=== PATIENT | female | born 1985 ===

== ENCOUNTER → 2020-07-26 14:24 | Outpatient (BNVA) | payer OTHER, SELFPAY | PROVIDERS: PCP Hospitalist; Visit Provider Surgery | DX: L29.0 Pruritus ani (principal) | CPT/HCPCS: 99202 ==

== ENCOUNTER 2024-12-22 09:52 | Outpatient (AMB) | payer MEDICARE, MEDICAID, SELFPAY ==
--- OUTSIDE RECORDS SUMMARY | 2024-12-17 14:00 | XMS_ITS | Encounter Summary ---
Author Organization [facility] Address [address] [place] [id number] Care Team Providers Care Field Training Agent Name Role Phone Onelia Daigle Primary Care Provider [phone] Reason for Visit * Consultation (Routine) - Authorized Specialty Diagnoses / Procedures Referred By Nestor garcía Referred To Contact Physical Therapy Diagnoses Right shoulder pain Monica Dillon, DO [address] [place] [address] Phone: tel: fax: Referral ID Status Reason Start Date Expiration Date Visits Requested Visits Authorized [id number] Authorized Specialty Services Required 10/28/2024 10/28/2025 20 20 Encounter Details Date Type Department Care Team (Late st Contact Info) Description 12/17/2024 2:00 PM EDT Treatment [address] [phone] Mallorie Cruz PT Chronic right shoulder pain (Primary Dx) Social History Tobacco Use Types Packs/Day Years Used Date Smoking Tobacco: Never Smokeless Tobacco: Never Alcohol Use Standard Drinks/Week Comments No 0 (1 standard drink = 0.6 oz pur e alcohol) Comments Unknown Sex and Gender Information Value Date Recorded Sex Assigned at Not on file Legal Sex Female 9:35 AM EST Gender Identity Not on file Sexual Orientation Not on file documented as of this encounter Progress Notes * Mallorie Cruz PT - 12/17/2024 2:00 PM EDT [facility] - Outpatient PHYSICAL THERAPY DAILY TREATMENT NOTE - OP Date: 12/17/2024 Visit Number: 3 Patient Name: Jennifer Caldwell : 1985 Age: 39 y.o. Gender: female Diagnosis: ICD-10-CM ICD-9-CM 1. Chronic right shoulder pain M25.511 719.41 G89.29 338.29 Date of Onset/Surgery: 11/30/2021 Referring Provider: Monica Dlilon DO Insurance: Payor: MEDICARE / Plan: MEDICARE PART A & B / Product Type: Medicare / Patient Identified by: Mallorie Cruz PT Language: Speaks and understands Swiss as preferred language with no senior solutions engineer required Medications: No current outpatient medications on file prior to visit. No current facility-administered medications on file prior to visit. Allergies: has no allergies on file. Precautions: none Fall risk: No SUBJECTIVE Subjective Report: pt reports R shoulder feeling better since last session. The massage hurt but then later it felt better. Chart Reviewed: Yes Pain: 4-09/18 R shoulder TREATMENT INTERVENTION: Shoulder pulleys into flexion x2 min Shoulder ER yellow theraband x 10 Shoulder extension single yellow theraband x 10 Supine elbow flexion with 1lb weight and towel roll under elbow, 2x10 reps Band pull aparts in hookyling with green band, 1x10 reps- HELD Manual Cross friction massage to biceps and biceps tendon, STM to bicep; in sitting STM and TP release to UT/LS/rhomboids on R ASSESSMENT/Response to Treatment Good Tolerated session well. Made some improvements after last session, so continued similar treatment. Patient Education: Education provided: POC Education Provided To: Patient utilizing Explanation mode(s) of education Response to Education: Verbal Understanding PLAN POC Development/Review: No Change in the Plan of Care; Participants: Patient Interventions Time Entry: Modalities: Therapeutic procedures: Manual Therapy Time Entry: 15 Therapeutic Exercise Time Entry: 15 Total Treatment Time: 30 Documentation completed by Mallorie Cruz PT documented in this encounter Plan of Treatment Upcoming Encounters Date Type Department Care Team (Late st Contact Info) Description 12/23/2024 11:30 AM EDT Treatment [address] [phone] Arya Florez PTA 12/27/2024 11:00 AM EDT Treatment [address] [place] [phone] Odalis Molina, PT 12/29/2024 11:30 AM EDT Treatment [facility] [address] [phone] Mallorie Cruz, PT 01/04/2025 11:00 AM EDT Treatment [facility] [address] [phone] Mallorie Cruz, PT 01/06/2025 11:00 AM EDT Treatment [address] [phone] Mallorie Cruz, PT 01/11/2025 11:00 AM EDT Treatment [address] [phone] Mallorie Cruz, PT 01/13/2025 10:45 AM EDT Consult Orthopedic [place] [address] [phone] Sean Serna, DPM [address] [phone] 01/13/2025 11:15 AM EDT Treatment [address] [phone] Mallorie Cruz, PT 01/17/2025 11:30 AM EDT Treatment [address] [phone] Mallorie Cruz, PT documented as of this encounter Goals Goal Patient Goal Type Associated Problems Recent Progress Patient-Stated? Author STGs (x4 visits) General Yes Tish Aiken PT Note: Patient will increase R knee flexion ROM to >/= 125 degrees for symmetry and ambulation Patient will increase knee flexion and extension strength to >/= 4/5 for functional mobility Patient will decrease time on 5xSTS to </= 25 seconds for improvement in functional strength Patient will be independent with HEP LTGs (x8 visits) General Yes Tish Aiken PT Note: Patient will improve R hip abduction and extension strength to >/= 4/5 for improvements in functional strength and stability Patient will improve time on 5xSTS to </= 18 seconds to show increase in functional strength Patient will improve distance on 6MWT to >/= 1500ft with </= 2 point increase in discomfort for improvements in household and community ambulation Patient will endorse being able to complete all ADLs with </= 2 point increase in discomfort Patient will be independent with HEP for maintenance and progression of gains made in skilled physical therapy. documented as of this encounter Visit Diagnoses Diagnosis Chronic right shoulder pain- Primary Pain in joint, shoulder region documented in this encounter Care Teams Field Training Agent Relationship Specialty Start Date End Date Onelia Daigle PA [address] [place] [address] PCP - General Physician Senior Solutions Engineer 10/05/24 documented as of this encounter
--- NOTE | 2024-12-22 09:58 | MHC.OFFVIS ---
Intake Visit Reasons: 3 month migraine Allergies No Known Allergies Allergy (Verified 12/22/24 09:59) Medication List - Last Reconciled 12/22/24 by Onelia Quiroz CNP baclofen 10 mg PO BID PRN betamethasone dipropionate 0.05% topical BID diclofenac sodium 75 mg PO BID diclofenac sodium 1% grams topical DAILY PRN dicyclomine 20 mg PO TID docusate sodium 100 mg PO DAILY gabapentin 300 mg PO BID PRN hydrocortisone 2.5% 1 appl [place] BID ibuprofen 800 mg PO TID PRN linaclotide 72 mcg PO QAM meclizine 12.5 mg orally 1 tab at bedtime and 1 tab as needed; 30 days melatonin 3 mg PO BEDTIME PRN menthol-zinc oxide 0.44-20.6 % (Calmoseptine) 1 appl topical QID PRN omeprazole 20 mg PO DAILY ondansetron HCl 4 mg PO DAILY sumatriptan succinate 0 mg PO DIRECTED verapamil 40 mg PO DAILY HPI Comments Details: 39-yo RH woman with migraines without aura. She was doing okay up until a few days ago. She started with bad migraine about 4 days ago that has continued with moderate to severe pressure-type pain to right side of head and behind eye with photophobia and sonophobia. Sumatriptan as needed has not helped. It was likely triggered by smell of paint as a room in her house was painted and the odor was still lingering. She got migraine last year after painting house and had to go to ER. Prior to this, headaches were okay, happening on average 1x/week lasting up to few hours and relieved with sumatriptan. Dizziness was also less. [facility] Medical History (Updated 12/22/24 @ 10:02 by Onelia Quiroz CNP) Pruritus ani GERD (gastroesophageal reflux disease) Migraine Surgical History H/O: hemorrhoidectomy (~2018) History of cholecystectomy (~2009) History of tonsillectomy (~2008) History of (~2009) Review of Systems Const Denies chills, Denies daytime sleepiness, Denies difficulty sleeping, Denies fatigue, Denies fever(s), Denies frequent falls, Reports headache(s), Denies increased appetite, Denies poor appetite, Denies snoring, Denies weakness, Denies weight gain and Denies weight loss Eyes Denies loss of vision ENT Denies vertigo, Reports dizziness and Reports headache(s) Card Denies chest pain at rest, Denies chest pain with activity, Denies syncope, Denies leg edema and Denies palpitations Resp Denies snoring GI Denies constipation, Denies heartburn, Denies diarrhea and Denies nausea Denies urinary frequency, Denies urinary incontinence and Denies urinary urgency Musc Denies abnormal gait, Denies numbness and Denies tingling Skin/Breast Denies dry skin and Denies rash Neuro Denies abnormal gait, Denies vertigo, Reports dizziness, Denies syncope, Denies frequent falls, Reports headache(s), Denies lack of coordination, Denies loss of vision, Denies memory loss, Denies numbness, Denies restless legs, Denies seizure-like activity, Denies tingling, Denies paresthesias, Denies tremor(s) and Denies weakness Psych Denies anxiety, Denies depression, Denies auditory hallucinations, Denies memory loss, Denies visual hallucinations and Denies suicidal ideation Endo Denies fatigue and Denies palpitations Physical Exam Const Other: General Appearance:? normal, in no acute distress. Skin:? no rashes, no significant birthmarks. Heart:? S1, S2 normal, no murmurs. Lungs:? clear anteriorly and posteriorly. Extremities:? no edema. Psych:? alert, oriented, cognitive function intact, cooperative with exam. Neuro Other: Mental Status:?Normal attention, orientation, memory and affect.? Cranial Nerves:?Pupils are equal, round and reactive to light. External occular muscles are intact. Visual roman are full. Face is symmetrical. Facial sensations are normal. Tongue is midline. Palate elevates symmetrically. Shoulder shrugging is normal. Hearing to bedside conversation is normal. Motor Examination:?Normal muscle tone, bulk and strength,?Deep tendon reflexes are 2+,?Plantars are flexor.? Sensory Exam:?....? Coordination:?No ataxia,?no titubation.? Gait Exam: Within normal limits. Cerebellar Signs:?Momdcm-jp-bxmo is okay. Extrapyramidal System:?No tremor, rigidity with normal facial expressions.? Pronator Drift:?Not present.? Involuntary Movements:?No tremors seen.? Speech:?Normal.? Assessment & Plan Assessment & Plan (1) Migraine without aura: Code(s): G43.009 - Migraine without aura, not intractable, without status migrainosus Category: Medical Qualifiers: Status migrainosus presence: without status migrainosus Intractability: not intractable Qualified Code(s): G43.009 - Migraine without aura, not intractable, without status migrainosus Plan: Continue verapamil 40mg 1 tablet daily. Continue sumatriptan 50mg 1 tablet as needed for migraines. Start prednisone 20mg 3 tabs x3 days, 2 tabs x2 days, 1 tab x2 days, use/side effects reviewed. (2) Vertigo: Code(s): R42 - Dizziness and giddiness Category: Medical Plan: Continue meclizine 12.5mg 1 tablet twice a day as needed. Plan Meds tried: Amitriptyline, topiramate, propranolol, depakote, Tylenol ES, Sumatriptan Medications: New prednisone 20 mg orally 3 tabs x3 days, 2 tabs x2 days, 1 tab x2 days; 15 tabs 0RF 7 days Coding Level of Care Code Est Pt Level 4 (44544) Diagnoses Migraine without aura and without status migrainosus, not intractable G43.009 Status migrainosus presence: without status migrainosus Intractability: not intractable Vertigo R42
--- OUTSIDE RECORDS SUMMARY | 2024-12-22 10:29 | XMS_ITS | Patient Health Record ---
Author Organization [facility] Address [address] [place] [address] Care Team Providers Care Per Diem Interpreter Name Role Phone YASMEEN ORTIZ Primary Care Provider [phone] Allergies No Known Allergies Reason For Referral No Information Medications Medication SIG (Take, Route, Frequency, Duration) Notes Start Date End Date Status Lidocaine (Anorectal) 5 % APPLY NEEDE D EXTERNALLY FOUR TIMES A DAY; Duration: 15 Active Acetaminophen ER 650 MG 1 tablet as need ed Orally twice a day Active Diclofenac Sodium 75 MG 1 tablet with fo od or milk Orally Twice a day; Duration: 30 Active Ergocalciferol 1.25 MG (90475 UT) 1 capsule Orally weekly; Duration: 30 day(s) 01/24/2021 Active Omeprazole 20 MG TAKE ONE CAPSULE BY MOUTH EVERY DAY; Duration: 90 Active SUMAtriptan Succinate 50 MG 1 tablet at least 2 hours between doses as needed Orally Twice a day Active Colace 100 MG 1 capsule as needed Orally Once a day; Duration: 30 day(s) 07/23/2019 Active Gabapentin 300 MG 1 capsule Orally tid prn; Duration: 30 day(s) Active Anusol-HC 2.5 % 1 application Rectal Twice a day; Duration: 30 Not-Taking Zofran 4 MG 1 tablet Orally Once a day; Duration: 7 days 05/26/2020 Active Dicyclomine HCl 10 MG 2 capsules Orally Three times a day; Duration: 90 Active Baclofen 10 MG 1 tablet as needed Orally Twice a day Active Lidocaine 5 % 1 application as needed Externally Three times a day; Duration: 30 days 06/01/2021 Active Melatonin 3 MG 1 tablet at bedtime as needed Orally Once a day Active Lactulose 20 GM/30ML 15 ml Orally Once a day; Duration: 30 day(s) 03/27/2021 Active Cymbalta 20 MG 1 capsule Orally Twi ce a day; Duration: 30 day(s) 11/30/2018 Active Topiramate 25 MG 1 tablet Orally Once a day Not-Taking Voltaren 1 % as directed External ly apply to affected area once a day Active Linzess 145 MCG 1 capsule Orally Onc e a day; Duration: 30 Active Immunizations Vaccine Route Administration Date Status Comme nts COVID Unknown 11/08/2020 Administered Social History Tobacco Use: Social History Observation Description Date Details (start date - stop date) Never Smoker NA - NA Tobacco Use/Smoking Question Answer Notes Are you a nonsmoker Alcohol Screen (Audit-C) Question Answer Notes Did you have a drink containing alcohol in the p ast year? No Points 0 Interpretation Negative Problems Problem Type SNOMED Code ICD Code Onset Dates Problem Status W/U Status Risk Notes Problem Viral infection (04710060) Viral infection, unspecified (B34.9) Active confirmed Problem Pernicious anemia (93572703) Vitamin B12 deficiency anemia due to intrinsic factor deficiency (D51.0) Active confirmed Problem Vitamin D deficiency (49879860) Vitamin D deficiency, unspecified (E55.9) Active confirmed Problem Mild recurrent major depression (60231550) Major depressive disorder, recurrent, mild (F33.0) Active confirmed Problem Generalized anxiety disorder (57599451) Generalized anxiety disorder (F41.1) Active confirmed Problem Migraine with aura (8701861) Migraine with aura, not intractable, without status migrainosus (G43.109) Active confirmed Problem Insomnia (936749174) Insomnia, unspecified (G47.00) Active confirmed Problem Acute sinusitis (66583286) Acute sinusitis, unspecified (J01.90) Active confirmed Problem Constipation (98286197) Constipation, unspecified (K59.00) Active confirmed Problem Second degree hemorrhoids (021170170) Second degree hemorrhoids (K64.1) Active confirmed Problem Osteoarthritis of knee (335894653) Bilateral primary osteoarthritis of knee (M17.0) Active confirmed Problem Joint pain (31159457) Pain in unspecified joint (M25.50) Active confirmed Problem Low back pain (545991472) Low back pain (M54.5) Active confirmed Problem Epigastric pain (34070103) Epigastric pain (R10.13) Active confirmed Problem Headache (03747015) Headache (R51) Active confirmed Problem Fatigue (86733508) Other fatigue (R53.83) Active confirmed Problem Syncope and collapse (365526874) Syncope and collapse (R55) Active confirmed Problem Pre-procedure evaluation check (080947230) Encounter for other preprocedural examination (Z01.818) Active confirmed Problem Body mass index 30.00 to 34.99 (589319946518990) Body mass index (BMI) 31.0-31.9, adult (Z68.31) Active confirmed Problem Body mass index 30.00 to 34.99 (283976611540146) Body mass index (BMI) 32.0-32.9, adult (Z68.32) Active confirmed Problem Abdominal pain (48152715) Abdominal pain (R10.9) Active confirmed Problem Hemorrhoids without complication (77353434) Hemorrhoids, unspecified hemorrhoid type (K64.9) Active confirmed Plan Of Treatment Pending Test Test Name Order Date US ABDOMINAL 02/09/2019 C. DIFFICILE TOXIN PCR 12/01/2019 Insurance Providers Payer Name Payer Address Payer Phone Subscriber Number Group Number Insured Name Patient Relationship to Insured Coverage Start Date Coverage End Date Medicare [address] [place] [phone] [id number] Jennifer Ryan i Self - patient is the insured [place] [address] [place] [address] [id number] Jennifer Ryan i Self - patient is the insured Medications Administered Medication Instructions Date of Administration Dosage Notes Vitamin B-12 12/01/2018 Vitamin B-12 01/01/2019 Vitamin B-12 02/09/2019 Vitamin B-12 03/16/2019 Vitamin B-12 07/12/2019 Vitamin B-12 02/29/2020 b-12 shot gi asuncion in right deltoid muscle by EDUARDO Ryan. Vitamin B-12 06/05/2020 Vitamin B-12 07/07/2020 lot [id number] exp 07/31 Vitamin B-12 03/26/2021 lot: [id number] Ex p: 03/02 Vitamin B-12 05/28/2021 lot :[id number] exp :aug 01 right deltoid Vitamin B-12 06/25/2021 Medical (General) History Medical History History ICD Code constipation depression B12 deficiency Hemorrhoids Back pain Anxiety talks to Callie Surgical History Surgery Date(Month/Year) section cholecystectomy Hospitalization History Reason Date(Month/Year)
== END 2024-12-22 10:15 | disposition home or self-care (01) ==
LOC: HO.HSM 09:53
PROVIDERS: PCP Physician Assistant Medical; Visit Provider Registered Nurse
DX: G43.009 Migraine without aura, not intractable, without status migrainosus (principal); R42 Dizziness and giddiness
CPT/HCPCS: 99214

== ENCOUNTER → 2024-12-22 09:52 | Outpatient (BNVA) | payer MEDICARE, MEDICAID, SELFPAY | PROVIDERS: PCP Physician Assistant Medical; Visit Provider Registered Nurse | DX: G43.009 Migraine without aura, not intractable, without status migrainosus (principal); H53.141 Visual discomfort, right eye; R42 Dizziness and giddiness | CPT/HCPCS: 99212 ==

== ENCOUNTER 2025-01-24 13:16 | Outpatient (AMB) | payer MEDICARE, MEDICAID, SELFPAY ==
--- NOTE | 2025-01-24 13:40 | MHC.OFFVIS ---
Vital Signs 01/24/25 13:45 Height 5 ft 5 in Weight 200 lb BMI 33.3 BP 108/68 Blood Pressure Location Rt brachial Position Sitting Respiration 16 Pulse 68 Pulse Oximetry (%) 98 Intake Visit Reasons: 4 weeks GROSS Radiology Tech Required: No Allergies No Known Allergies Allergy (Verified 01/24/25 13:44) HPI Comments Details: Jennifer is a 39-year-old female patient following in the clinic for migraines with aura. She was last seen on 12/22/2024 at which time she reported pain for approximately 4 days with a pressure type pain to the right side of her head and behind the eye with photophobia and phonophobia. Her as-needed sumatriptan was not helpful and she was prescribed a course of prednisone for acute therapy. She has trialed numerous therapies in the past that have caused dizziness and somnolance. She remains on verapamil 40mg daily which she tolerates though she does not have significant migraine relief with this . She has been taking sumatriptan, ibuprofen, and tylenol for migraine. She is taking the sumatriptan or an OTC option once per week or less. She notes that in general headahces have been improving now occurring once weekly. They generally last 2-3 hours but can last longer such as 2-3 days. With her headaches she has light and sound sensitivity, nasuea, and dizziness. Sumatriptan if taken early can effectively abort her migraine within 1 hour. Unfortunately, more recently (starting in the beginning of December) her painted the floor which caused significant fumes. This caused a 10 day headache for which she went to urgent care and also was given a course of prednisone. She subsequently developed pain to her right eye as well as redness. She saw urgent care again she was given a topical cream. Since this time she has had intermittent right eye pain with redness to her sclera snd right retroorbital pain. Oral prednisone has helped her pain though after the course of prednisone her pain returned. Current pain is 4/10 and described as a pressure. She also notes some possible loss in her visual acuity to the right side only since this started. She has not seen her eye provider since June. She does not have any visual loss, floaters, or scotomas in her vision. She feels however that it is not as sharp as it had been in the past to the right side. Prior medication trials have included: Verapamil 40 mg once daily-currently taking Amitriptyline- Caused dizziness and somnolance Topiramate-Caused dizziness and somnolance Propranolol-Caused dizziness and somnolance Depakote-Caused dizziness and somnolance Sumatriptan 50 mg Prior workup: None available [facility] Medical History (Updated 01/24/25 @ 14:16 by Lyla Tse CNP) Pruritus ani GERD (gastroesophageal reflux disease) Migraine Surgical History H/O: hemorrhoidectomy (~2018) History of cholecystectomy (~2009) History of tonsillectomy (~2008) History of (~2009) Review of Systems Const Reports as per HPI Physical Exam Const General: cooperative, healthy appearing, comfortable and no acute distress Nutritional Appearance: well nourished Orientation/consciousness: patient oriented x3 Limitations: no limitations HEENT Other: Right temporal and occipital pain with palpation Head: Yes normal to inspection and Yes normocephalic Eyes Visual Mota: normal visual mota by confrontation Alignment and Position: alignment normal Periorbital: periorbital findings normal Eyelids: Yes eyelids normal Conjunctivae: conjunctival abnormal right subconjunctival hemorrhage Sclerae: sclerae normal and scleral abnormal right scleral injection medial Direct Ophthalmoscopy: no papilledema and fundi normal bilaterally Neck Neck: Yes normal visual inspection and Yes full ROM General: Yes no CVA tenderness Back/Spine/Pelvis Back: no CVA tenderness Cervical Spine: normal cervical lordosis Thoracic/Lumbar Spine: thoracic and lumbar spine normal to inspection Neuro General: patient oriented x3, tone normal and deep tendon reflexes 2+ bilaterally Cranial nerves: Yes CN's II-XII intact bilaterally and Yes Facial sensation intact/muscles of mastication intact Cognition (Neuro): normal cognition Gait exam (Neuro): Normal gait present Motor exam (neuro): 5/5 motor strength present throughout and no tremor noted Sensory Exam: double simultaneous stimulation for sensation normal Romberg Test: Negative Pupils: Normal pupillary reactivity/response: bilateral Psych Appearance: grossly normal Mental Status: mental status grossly normal Speech and movement: Normal speech and movement present and Clear speech present Affect: normal affect Attitude: cooperative Thought process: Normal thought process present Thought content: Normal thought content present Insight: Good insight present (Psych) Judgement: Good judgement present (Psych) Assessment & Plan Assessment & Plan (1) Migraine without aura: Code(s): G43.009 - Migraine without aura, not intractable, without status migrainosus Category: Medical Qualifiers: Status migrainosus presence: without status migrainosus Intractability: not intractable Qualified Code(s): G43.009 - Migraine without aura, not intractable, without status migrainosus (2) Temporal pain: Code(s): R51.9 - Headache, unspecified Category: Medical (3) Headache, worsening: Code(s): R51.9 - Headache, unspecified Category: Medical (4) Retro-orbital pain: Code(s): H57.10 - Ocular pain, unspecified eye Category: Medical Qualifiers: Laterality: right Qualified Code(s): H57.11 - Ocular pain, right eye Plan Jennifer is a 39-year-old female patient following in the clinic for migraines with aura. In the beginning of December, she developed a 10 day migraine after which she developed right retro-orbital pain accompanied by slight loss in visual acuity on the right side only as well as some temporal pain on the right side. She has responded to prednisone though after stopping the course of prednisone her pain increases again. I am concerned about GCA and will order inflammatory markers. I will also order an MRI of the brain with and without contrast to rule out a retro-orbital mass/lesion. I have encouraged her to make an urgent visit with [facility] for a more comprehensive and thorough eye exam. She does have some reddening to the sclera. No papilledema noted on exam. Her exam is significant for the right temporal pain as well as right occipital pain with palpation. Alternatively, this may represent occipital neuralgia which can cause radiating retro-orbital pain. We will 1st rule out more serious conditions and if labs and imaging are normal, we could consider treatment with occipital nerve block or a repeat course of prednisone, and improve on her preventative regimen. -CRP and ESR r/o GCA -MRI chinyere with and without contrast -Make urgent visit [facility] -follow-up in 6 weeks or possibly sooner if indicated by the workup Orders: Orders MR head/brain wo/w con Today H57.10 - Ocular pain, unspecified eye, R51.9 - Headache, unspecified CRP High Sensitivity Today R51.9 - Headache, unspecified Erythrocyte Sedimentation Rate Today R51.9 - Headache, unspecified Coding Level of Care Code Est Pt Level 4 (42766) Diagnoses Migraine without aura and without status migrainosus, not intractable G43.009 Status migrainosus presence: without status migrainosus Intractability: not intractable Temporal pain R51.9 Headache, worsening R51.9 Retro-orbital pain of right eye H57.11 Laterality: right
[2025-01-24 13:45] VITALS: BP 108/68; PULSE 68; RESP 16; O2SAT 98; BMI 33.3
--- OUTSIDE RECORDS SUMMARY | 2025-01-24 18:24 | XMS_ITS | Clinical Summary ---
Author Organization [facility] Address [address] [place] [address] Phone Care Team Providers Care Physical Therapy Manager Name Role Phone Onelia Daigle Primary Care Provider [phone] Allergies No known active allergies Medications diclofenac (Voltaren Arthritis Pain) 1 % topical gel Apply 4 g topically 2 (two) times a day. 240 g 1 01/14/20 25 025 Active diclofenac (Voltaren Arthritis Pain) 1 % topical gel Apply 4 g topically 2 (two) times a day. 240 g 1 01/14/20 25 025 Discontinued Encounters Date Type Department Care Team Description 01/17/2025 11:30 AM EDT Treatment [facility] [address] [phone] Mallorie Cruz, PT Chronic right shoulder pain (Primary Dx) 01/13/2025 11:15 AM EDT Treatment [facility] [address] [phone] Mallorie Cruz, PT Chronic right shoulder pain (Primary Dx) 01/13/2025 10:45 AM EDT Consult Orthopedic Surgery [facility] [address] [phone] Sean Serna DPM Tendinitis of right ankle (Primary Dx); Tendinitis of left ankle; Neuritis of foot, unspecified laterality; Metatarsalgia of both feet 01/11/2025 11:00 AM EDT Treatment [address] [phone] Mallorie Cruz, PT Chronic right shoulder pain (Primary Dx) 01/04/2025 11:00 AM EDT Treatment [address] [phone] Mallorie Cruz, PT Chronic right shoulder pain (Primary Dx) 12/29/2024 11:30 AM EDT Treatment [address] [phone] Mallorie Cruz, PT Chronic right shoulder pain (Primary Dx) 12/27/2024 11:00 AM EDT Treatment [address] [address] Odalis Molina, PT Chronic right shoulder pain (Primary Dx) 12/17/2024 2:00 PM EDT Treatment [address] [address] Mallorie Cruz, PT Chronic right shoulder pain (Primary Dx) 12/15/2024 9:30 AM EDT Consult Orthopedic Surgery [facility] [address] [phone] Sean Serna, DPM Neuritis of foot, unspecified laterality (Primary Dx); Pronation of feet; Metatarsalgia of both feet; Tendinitis of right ankle; Tendinitis of left ankle 12/14/2024 10:00 AM EDT Treatment [address] [phone] Odalis Molina PT Chronic right shoulder pain (Primary Dx) 11/30/2024 11:00 AM EDT Evaluation [address] [address] Mallorie Cruz, PT Chronic right shoulder pain (Primary Dx) 11/30/2024 Plan of Care Documentation [address] [phone] 10/28/2024 11:00 AM EDT Treatment [facility] [address] [phone] Mallorie Cruz, PT Chronic pain of right knee (Primary Dx) from Last 3 Months Surgical History Surgery Date Site/Laterality Comments SECTION PROCEDURE: [facility] DELIVERY ONLY TONSILLECTOMY PROCEDURE: HISTORICAL TONSILLECTOMY Medical History Medical History Date Comments Iron deficiency DX:Iron deficien cy GERD (gastroesophageal reflux disease) DX:GERD (gastroesophageal reflux disease) Pelvic congestion syndrome DX:Pe lvic congestion syndrome; COMMENT: noted on sono in 2014 and 2019 Family History Medical History Relation Name Comments Hypertension Father Relation Name Status Comments Father Alive Mother Alive Social History Tobacco Use Types Packs/Day Years Used Date Smoking Tobacco: Never Smokeless Tobacco: Never Alcohol Use Standard Drinks/Week Comments No 0 (1 standard drink = 0.6 oz pur e alcohol) Comments Unknown Sex and Gender Information Value Date Recorded Sex Assigned at Female 01/04/2025 10:12 AM EDT Legal Sex Female 9:35 AM EST Gender Identity Female 01/04/2025 10:12 AM EDT Sexual Orientation Choose not to disclose 2024 10:12 AM EDT Obstetrics History Last Filed Vital Signs Vital Sign Reading Time Taken Comments Blood Pressure 120/72 08/22/2022 2:10 PM EDT Sit ting L Arm Pulse 82 08/22/2022 2:10 PM EDT Temperature - - Respiratory Rate - - Oxygen Saturation - - Inhaled Oxygen Concentration - - Weight 93 kg (205 lb) 01/13/2025 11:13 AM EDT Height 165.1 cm (5' 5 ) 01/13/2025 11:13 AM EDT Body Mass Index 34.11 01/13/2025 11:13 AM EDT Plan of Treatment Upcoming Encounters Date Type Department Care Team (Late st Contact Info) Description 02/15/2025 11:00 AM EDT Evaluation [facility] [address] [phone] Fina Cota, JONATHAN 02/24/2025 10:30 AM EDT Office Visit Orthopedic Surgery [place] [phone] [facility] [address] [place] [phone] Sean Serna, DPDavid [address] [facility] [address] [place] [address] Health Maintenance Due Date Last Done Comments Breast Cancer Screening 1984 Cervical Cancer Screening: Pap Smear 2005 Hepatitis B Vaccines (3 of 3 - 19+ 3-dose series) 11/30/2013 09/13/2013, 08/13/2013, 06/02/2013 HIV Screening 04/08/2022 Hepatitis C Screening 04/08/2022 Medicare Annual Wellness Visit 04/08/2022 Social Influencers of Health Screening 04/08/2022 Cholesterol Screening (Lipid Panel) 06/20/2022 06/20/2017 DTaP,Tdap,and Td Vaccines (3 - Td or Tdap) 08/14/2023 08/13/2013, 04/28/2013 Depression Screening 05/12/2024 COVID-19 Vaccine ( season) 2025 11/08/2020, 10/18/2020 Influenza Vaccine (#1) 2025 9, 02/16/2018, 03/15/2014, Additional history exists MMR Vaccines Aged Out 06/02/2013, 04/28/2013 No lo nger eligible based on patient's age to complete this topic HIB Vaccines Aged Out No longer eligi ble based on patient's age to complete this topic HPV Vaccines Aged Out No longer eligi ble based on patient's age to complete this topic Hepatitis A Vaccines Aged Out No long er eligible based on patient's age to complete this topic IPV Vaccines Aged Out No longer eligi ble based on patient's age to complete this topic Meningococcal ACWY Vaccine Aged Out N o longer eligible based on patient's age to complete this topic Meningococcal B Vaccine Aged Out No l onger eligible based on patient's age to complete this topic Pneumococcal Vaccine: Pediatrics (0 to 5 Years) and At-Risk Patients (6 to 49 Years) Aged Out No longer eligible based on patient's age to complete this topic RSV Immunization Patients Under 20 months Aged Out No longer eligible based on patient's age to complete this topic Varicella Vaccines Aged Out No longer eligible based on patient's age to complete this topic Goals Goal Patient Goal Type Associated Problems [...] of gains made in skilled physical therapy. Insurance MEDICARE MEDICAID - [place] Care Teams Physical Therapy Manager Relationship Specialty Start Date End Date Onelia Daigle PA [address] [place] [phone] PCP - General Physician Control Technician 10/05/24
--- OUTSIDE RECORDS SUMMARY | 2025-01-24 18:24 | XMS_ITS | Clinical Summary ---
Author Organization [facility] Address [address] [place] [address] Care Team Providers Care Youth Advocate Name Role Phone DamianMillicent GAYLE Primary Care Provider Source Comments PLEASE NOTE, if this patient is a minor, it may be UNLAWFUL to discuss sensitive information that is contained in these records (such as FAMILY PLANNING, MENTAL HEALTH or SUBSTANCE ABUSE) with the minor patient's parent or other person without the patient's specific authorization.[facility] Allergies No known active allergies Medications rowdy cisneros (ROWDY SHANKS,) 50 %Indications:Ext ernal hemorrhoids Use as needed up to 6 times per day or after each bowel movement. 100 Each 8 Active polyethylene glycol 3350 (GLYCOLAX, MIRALAX) 17 gram/dose powder DISSOLVE 17 GM IN WATER AND DRINK BY MOUTH DAILY 1 8 Active lidocaine 5 % oint USE 1 APPLICATION TOPICALLY 4 TIMES A DAY NEEDED FOR PAIN , MODERATE 1 8 Active hydrocortisone (PROCTOSOL HC) 2.5 % topical creamIndications :External hemorrhoids Place rectally 2 (two) times daily 30 g 1 8 Active cyanocobalamin, vitamin B-12, 1,000 mcg/mL injectionIndicat ions:Vitamin B12 deficiency VITAMIN B-12 IM INJECTION EVERY 2 WEEKS FOR FIRST 4 INJECTIONS THEN ONCE EVERY 30 DAYS THEREAFTER. 1 mL 11 9 Active acetaminophen (TYLENOL 8 HOUR) 650 mg CR tabletIndication s:Arthralgia of multiple joints Take 1 Tab by mouth every 8 (eight) hours as needed for pain 60 Tab 9 Active traZODone (DESYREL) 100 mg tablet PER PSYCH Dr. ALCOCER 1 9 Active ibuprofen (ADVIL,MOTRIN) 600 mg tablet TAKE 1 TABLET BY MOUTH EVERY 6 HOURS NEEDED FOR PAIN FOR UP TO 30 DAYS. 1 9 Active DULoxetine (CYMBALTA) [address] capsuleIndicatio ns:Arthralgia of multiple joints Take 1 Cap by mouth once daily 30 Cap 9 Active docusate sodium (COLACE) 100 mg capsuleIndicatio ns:Constipation, unspecified constipation type Take 1 Cap by mouth 2 (two) times daily as needed for constipation 60 Cap 9 Active melatonin 3 mg tabletIndication s:Difficulty sleeping TAKE 1 TABLET BY MOUTH EVERY DAY AT BEDTIME NEEDED SLEEP 90 Tab 1 0 Active ibuprofen 800 mg tabletIndication s:Tooth infection Take 1 Tab by mouth 3 (three) times daily as needed for pain 30 Tab 0 Active Active Problems Problem Noted Date Diagnosed Date PTSD (post-traumatic stress disorder) 12/28/2018 Moderate episode of recurren t major depressive disorder (CMS & HHS-HCC) 12/28/2018 Calculus of gallbladder with out cholecystitis without obstruction 01/25/2018 Overview (01/25/2018): 01/15/18 US Gallbladder: mild hepatomegaly with coarsening of the hepatic echotexture consistent with fatty infiltration and/or hepatocellular disease. There is no biliary dilatation. Cholelithiasis - 2.6 cm calculus within phrygian cap. There is borderline thickening of the wall of the gallbladder without definite evidence of cholecystitis. Dizziness 11/16/2017 Overview (11/16/2017): 08/14/17 - [facility]: pt was not able to tolerate full assessment may benefit from anti-emetic prior to her next visit. Arthralgia of multiple joints likely d/t fibromy algia 08/15/2017 Overview (06/22/2018): 08/01/17 - [facility] Rheum: There is no evidence at this time for an active inflammatory arthritis or other inflammatory autoimmune rheumatologic condition. She appears to have multiple features of fibromyalgia syndrome. Pt interested in considering one of the newer fibromyalgia meds such as Cymbalta, Lyrica or Savella. NEGATIVE b/l hands, ankles, knees, shoulder, and hips XRAYS 05/06/18 - 06/16/18 [facility] PT for R shoulder and neck pain 3x/wk x 6 wks 06/17/18 - 07/28/18 [facility] PT for R shoulder and neck pain 3x/wk x 6 wks Vitamin B12 deficiency - neg intrinsic factor External hemorrhoids 09/02/2016 Overview (04/06/2018): 11/17/17 - Eval by gen Surg Shi Carrasco PROPERTY ASSISTANT. Pt with problematic prolapsing internal hemorrhoids. Pt will f/u with Dr. Hui, She may benefit from DGHAL with mucopexy. GERD (gastroesophageal reflux disease) 6 Allergic rhinitis 03/15/2014 Overview (08/17/2014): DNKA WITH ENT. 08/12/14. Helicobacter pylori (H. pylo ri) infection, tx completed 08/18/13. 08/18/2013 Vitamin D insufficiency 08/18/2013 Iron deficiency anemia 06/02/2013 Resolved Problems Problem Noted Date Diagnosed Date Resolved Date Gastritis 08/13/2013 07/21/2017 Overview (08/18/2013): + H.pylori 08/17/13, Tx given 08/18/13 Immunizations Immunization Administration Dates Next Due Hep B, Adult/Adol (QONWFLV-P-TIHWJ/RECOMBIVAX-ADULT) 09/13/2013,08/13/2013,06/02/2013 History Of Varicella 04/28/2013 INFLUENZA, SEASONAL, INJECTABLE 01/07/20 19,02/16/2018,03/15/2014,2012 MMR (MMR II/Priorix) 06/02/2013,04/28/2013 TDAP 04/28/2013 Td (adult), 5 Lf tetanus tox oid (Tenivac), preservative free 08/13/2013 Social History Tobacco Use Types Packs/Day Years Used Date Smoking Tobacco: Never Smokeless Tobacco: Never Alcohol Use Standard Drinks/Week Comments No 0 (1 standard drink = 0.6 oz pur e alcohol) Social Connections Answer Date Recorded Social Connections and Isolation 0 12/28/2018 Financial Resource Strain Answer Date R ecorded Financial Resource Strain 0 2018 Stress Answer Date Recorded Stress 0 12/28/2018 Physical Activity Answer Date Recorded Physical Activity 0 12/28/2018 Food Insecurity Answer Date Recorded Food 0 12/28/2018 Transportation Needs Answer Date Record ed Transportation 0 12/28/2018 Housing Stability Answer Date Recorded Housing 0 12/28/2018 Safety and Environment Answer Date Antoine rded Safety 0 12/28/2018 Utilities Answer Date Recorded Utilities 0 12/28/2018 Employment Answer Date Recorded Employment 0 12/28/2018 Comments No Sex and Gender Information Value Date Recorded Sex Assigned at Female 02/20/2017 10:47 AM PDT Legal Sex Female 1:53 PM PST Gender Identity Female 02/20/2017 10:47 AM PDT Sexual Orientation Straight 02/20/2017 10 :47 AM PDT 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 Not on file Not on file Not on file Last Filed Vital Signs Vital Sign Reading Time Taken Comments Blood Pressure 100/66 09/11/2018 10:11 AM EDT Pulse 76 09/11/2018 10:11 AM EDT Temperature 36.8 C (98.3 F) 09/11/2018 10:11 AM EDT Respiratory Rate 16 09/11/2018 10:11 AM EDT Oxygen Saturation 100% 10/08/2017 11:35 AM EDT Inhaled Oxygen Concentration - - Weight 82.1 kg (181 lb) 09/11/2018 10:11 AM EDT Height 165.1 cm (5' 5 ) 09/11/2018 10:11 AM EDT Body Mass Index 30.12 09/11/2018 10:11 AM EDT Plan of Treatment Not on file Insurance [facility] [place] [address] HEALTH SAFETY NET DENTAL [facility]ALTHY [facility] BEHAVIORAL HEALTH STRATEGIES Care Teams Youth Advocate Relationship Specialty Start Date End Date Millicent Salgado DMD [address] [place] [address] PCP - General 07/21/20
--- OUTSIDE RECORDS SUMMARY | 2025-01-24 18:24 | XMS_ITS | Patient Health Record ---
Author Organization [facility] Address [address] [place] [address] Care Team Providers Care Corsage Maker Name Role Phone YASMEEN ORTIZ Primary Care Provider Allergies No Known Allergies Reason For Referral [...] day; Duration: 30 Active Ergocalciferol 1.25 MG (82826 UT) 1 capsule Orally weekly; Duration: 30 [...] W/U Status Risk Notes Problem Viral infection (05232278) Viral infection, unspecified (B34.9) Active confirmed Problem Pernicious anemia (22991147) Vitamin B12 deficiency anemia due to intrinsic factor deficiency (D51.0) Active confirmed Problem Vitamin D deficiency (18446989) Vitamin D deficiency, unspecified (E55.9) Active confirmed Problem Mild recurrent major depression (86177937) Major depressive disorder, recurrent, mild (F33.0) Active confirmed Problem Generalized anxiety disorder (24596619) Generalized anxiety disorder (F41.1) Active confirmed Problem Migraine with aura (0980479) Migraine with aura, not intractable, without status migrainosus (G43.109) Active confirmed Problem Insomnia (426432226) Insomnia, unspecified (G47.00) Active confirmed Problem Acute sinusitis (96754619) Acute sinusitis, unspecified (J01.90) Active confirmed Problem Constipation (80842415) Constipation, unspecified (K59.00) Active confirmed Problem Second degree hemorrhoids (534120694) Second degree hemorrhoids (K64.1) Active confirmed Problem Osteoarthritis of knee (827368130) Bilateral primary osteoarthritis of knee (M17.0) Active confirmed Problem Joint pain (48647237) Pain in unspecified joint (M25.50) Active confirmed Problem Low back pain (441290105) Low back pain (M54.5) Active confirmed Problem Epigastric pain (26722199) Epigastric pain (R10.13) Active confirmed Problem Headache (94700381) Headache (R51) Active confirmed Problem Fatigue (32732945) Other fatigue (R53.83) Active confirmed Problem Syncope and collapse (660642561) Syncope and collapse (R55) Active confirmed Problem Pre-procedure evaluation check (575804411) Encounter for other preprocedural examination (Z01.818) Active confirmed Problem Body mass index 30.00 to 34.99 (371010958162602) Body mass index (BMI) 31.0-31.9, adult (Z68.31) Active confirmed Problem Body mass index 30.00 to 34.99 (264758740151331) Body mass index (BMI) 32.0-32.9, adult (Z68.32) Active confirmed Problem Abdominal pain (74641652) Abdominal pain (R10.9) Active confirmed Problem Hemorrhoids without complication (79292882) Hemorrhoids, unspecified hemorrhoid type (K64.9) Active confirmed Plan Of Treatment Pending Test Test Name Order Date US ABDOMINAL 02/09/2019 C. DIFFICILE TOXIN PCR 12/01/2019 Insurance Providers Payer Name Payer Address Payer Phone Subscriber Number Group Number Insured Name Patient Relationship to Insured Coverage Start Date Coverage End Date Medicare [address] [place] [phone] [id number] Jennifer Ryan i Self - patient is the insured [place] [address] [place] [address] [id number] Jennifer Ryan i Self - patient is [...]
== END 2025-01-24 14:07 | disposition home or self-care (01) ==
LOC: HO.HSM 13:17
PROVIDERS: PCP Physician Assistant Medical; Visit Provider Registered Nurse
DX: G43.009 Migraine without aura, not intractable, without status migrainosus (principal); R51.9 Headache, unspecified; H57.11 Ocular pain, right eye
CPT/HCPCS: 99214

== ENCOUNTER 2025-01-24 13:16 | Outpatient (REF) | payer MEDICARE, MEDICAID, SELFPAY | END 2025-01-24 13:17 | disposition home or self-care (01) | LOC: HO.LAB 13:16 | PROVIDERS: Absent Provider Nurse Practitioner; PCP Physician Assistant Medical; Visit Provider Registered Nurse | DX: G43.009 Migraine without aura, not intractable, without status migrainosus (principal); H57.11 Ocular pain, right eye | CPT/HCPCS: 36415; 85652; 86141; 99212 ==

== ENCOUNTER → 2025-02-18 12:51 | Outpatient (BNV) | payer MEDICARE, MEDICAID, SELFPAY | PROVIDERS: PCP Physician Assistant Medical; Visit Provider Radiology Diagnostic Radiology | DX: R51.9 Headache, unspecified (principal); R42 Dizziness and giddiness; H57.11 Ocular pain, right eye | CPT/HCPCS: 70543; 70553 ==

== ENCOUNTER 2025-02-18 12:52 | Outpatient (REF) | payer MEDICARE, MEDICAID, SELFPAY ==
--- NOTE | ~2025-02-18 | MR_ITS ---
EXAMINATION: MR BRAIN AND ORBITS WITHOUT AND WITH CONTRAST CLINICAL INFORMATION: Headaches, unspecified. Pain and irritation of the right eye. Dizziness. COMPARISON: None available. TECHNIQUE: Multiplanar, multisequence MRI of the brain and orbits was obtained before and after the intravenous administration of 10 mL Gadavist. Standard departmental brain and orbital protocol utilized. Examination performed on 1.5 Minna Siemens high-field unit. FINDINGS: There is no diffusion restriction. There is no intracranial hemorrhage, acute infarction, mass effect, or edema. Ventricles, sulci, and cisterns are normal in size and configuration for patient age. No shift of midline. No abnormal hemosiderin deposition is identified. There are no white matter signal abnormalities. There is no abnormal intra or extra-axial enhancement after the administration of contrast. Midline structures appear normally formed. The pituitary gland appears normal. Posterior fossa structures appear normal. There is mild cerebellar tonsillar ectopia, which does not meet strict criteria for a Chiari I malformation. Major flow voids are preserved within the skull base. Globes are intact. The lenses are appropriately located. The optic nerve sheath complexes appear normal. The extraocular muscles appear normal. The conal, intraconal, extraconal structures appear normal. There are several mucous retention cysts in the dependent right maxillary sinus. Mild mucosal thickening in the dependent left maxillary sinus. Remainder of the paranasal sinuses are normally aerated. The mastoids and tympanic cavities are normally aerated. Extracranial soft tissues demonstrate no abnormalities. No suspicious bone marrow changes are evident. Atlantoaxial joint is normal. MR/MR orbits face neck wo/w con IMPRESSION: 1. No evidence of intracranial hemorrhage, acute infarction, mass effect, edema, or abnormal contrast enhancement. 2. There are no white matter signal abnormalities. 3. The globes and orbital contents demonstrate no abnormalities. 4. Mild paranasal sinus disease as described. Electronically signed by: Marvin Cardenas MD 02/18/2025 02:52 PM EDT
== END 2025-02-18 12:53 | disposition home or self-care (01) ==
LOC: HO.MRI 12:52
PROVIDERS: PCP Physician Assistant Medical; Visit Provider Nurse Practitioner
DX: R51.9 Headache, unspecified (principal); H57.11 Ocular pain, right eye
CPT/HCPCS: 70543; 70553; A9585

== ENCOUNTER 2025-03-25 14:23 | Outpatient (AMB) | payer MEDICARE, MEDICAID, SELFPAY ==
--- OUTSIDE RECORDS SUMMARY | 2025-03-22 15:30 | XMS_ITS | Encounter Summary ---
[facility] Organization [facility] Address [address] [place] [address] Care Team Providers Care Relocation Director Name Role Phone Onelia Daigle Primary Care Provider [phone] Reason for Visit * Consultation (Routine) - Authorized Specialty Diagnoses / Procedures Referred By Nestor garcía Referred To Contact Physical Therapy Diagnoses Right shoulder pain Monica Dillon DO [address] [place] [address] Phone: tel: fax: Referral ID Status Reason Start Date Expiration Date Visits Requested Visits Authorized [id number] Authorized Specialty Services Required 10/28/2024 10/28/2025 20 20 Encounter Details Date Type Department Care Team (Late st Contact Info) Description 03/22/2025 3:30 PM EST Treatment [address] [phone] Arya Florez PTA Tendonitis of ankle or foot (Primary Dx) Social History Tobacco Use Types [...] not to disclose 2024 10:12 AM EDT documented as of this encounter Progress Notes * Arya Florez PTA - 03/22/2025 3:30 PM EST [facility] - Outpatient PHYSICAL THERAPY DAILY TREATMENT NOTE - OP Date: 03/22/2025 Visit Number: [id number] Patient Name: Jennifer Caldwell : 1985 Age: 39 y.o. Gender: female Diagnosis: ICD-10-CM ICD-9-CM 1. Tendonitis of ankle or foot M77.50 727.06 Date of Onset/Surgery: 02/15/2023 Referring Provider: Monica Dillon DO Insurance: Payor: MEDICARE / Plan: MEDICARE PART A & B / Product Type: Medicare / Patient Identified by: Arya Florez PTA Language: Speaks and understands New Zealander as preferred language with no park interpreter required Medications: Medications Ordered Prior to Encounter[1] Allergies: has no known allergies. Precautions: none Fall risk: No SUBJECTIVE Subjective Report: Patient reports feeling good after last visit. Chart Reviewed: Yes Pain: B feet, lower back since her fall TREATMENT INTERVENTION: Standing heel raises 2 x 10 reps Fascia rolls with lacrosse ball x 2 mins each Standing gastroc stretching Toe flexion stretching Manual Therapy Stm/ IASTM using graston tool B plantar fascia and distal achilles tendons in prone ASSESSMENT/Response to Treatment Good, patient having discomfort with manual therapy but reports it really helped after last visit. Patient Education: Education provided: yes Education Provided To: Patient utilizing Explanation mode(s) of education Response to Education: Verbal Understanding PLAN POC Development/Review: No Change in the Plan of Care; Participants: Patient Interventions Time Entry: Modalities: Therapeutic procedures: Manual Therapy Time Entry: 10 Therapeutic Exercise Time Entry: 15 Total Treatment Time: 25 mins Documentation completed by Arya Florez PTA [1] No current outpatient medications on file prior to visit. No current facility-administered medications on file prior to visit. documented in this encounter Plan of Treatment Upcoming Encounters Date Type Department Care Team (Late st Contact Info) Description 03/29/2025 3:30 PM EST Treatment [address] [phone] Arya Florez PTA 04/01/2025 3:00 PM EST Treatment [facility] [address] [phone] Mallorie Cruz, PT documented as of this [...] of gains made in skilled physical therapy. PT LTG - 6 visits General No Fina Cota PT Note: Patient reports subjective decrease in bilateral foot pain Patient is able to achieve 5/5 ankle DF and PF strength Normal PA joint mobility to midfoot bilaterally Slight anterior tib flexibility restriction bilaterally Patient is independent and compliant with HEP documented as of this encounter Visit Diagnoses Diagnosis Tendonitis of ankle or foot- Primary documented in this encounter Care Teams Relocation Director Relationship Specialty Start Date End Date Onelia Daigle PA [address] [place] [id number] PCP - General Physician Deputy Chief Executive 10/05/24 documented as of this encounter
--- NOTE | 2025-03-25 14:30 | MHC.OFFVIS ---
Vital Signs 03/25/25 14:36 Height 5 ft 5 in Weight 216 lb BMI 35.9 BP 108/75 Blood Pressure Location Lt brachial Position Sitting Respiration 16 Pulse 71 Pulse Source Pulse Oximeter Pulse Oximetry (%) 99 Oxygen Delivery Method Room Air Intake Visit Reasons: 6 weeks Manufacturing Accountant Required: Yes Manufacturing Accountant Services: Manufacturing Accountant Present Manufacturing Accountant Name: [id number] Information Interpreted: non-clinical & clinical Allergies No Known Allergies Allergy (Verified 03/25/25 14:37) HPI Comments Details: Jennifer is a 39-year-old female patient following in the clinic for migraines with aura. Over the course of the summer of 2024, her headaches have increased associated with pain to her right eye, redness of the eye, photophobia, and phonophobia. She has been prescribed a course of prednisone without any significant benefit. I saw her most recently on 01/24/2025 at which time she described headache ongoing for 10 days associated with right eye pain, redness, and pressure sensation with some decreased visual loss to the right side. Despite steroid tapers pain had continued. I recommended an MRI of the brain as well as CRP and sed rate all of which were reassuring. She has also had a longstanding history of dizziness. For her headaches and dizziness she is on verapamil 40 mg daily and she also takes sumatriptan as needed. She will sometimes take ibuprofen or Tylenol for milder headaches. Today she reports that since the time of her last visit she has had substantial improvement in both her eye pain and head pain. She was prescribed a topical agent for her eye which has been improving both are pain in vision. She is now experiencing a migraine type headache associated with light and sound sensitivity twice per week lasting a couple of hours at max. She does however continue to have some intermittent dizziness not necessarily associated with headaches. She reports that her sleep can at times be fragmented with nightly awakenings and that she does have some gasping arousals. She has never had a sleep study in the past. Prior medication trials have included: Verapamil 40 mg once daily-currently taking Amitriptyline- Caused dizziness and somnolance Topiramate-Caused dizziness and somnolance Propranolol-Caused dizziness and somnolance Depakote-Caused dizziness and somnolance Sumatriptan 50 mg Prior workup: 02/18/2025 MRI of the orbits, face, and neck: No evidence of intracranial hemorrhage, acute infarction, mass effect, edema, or abnormal enhancement. No white matter signal abnormalities. Globes and orbital contents demonstrate no abnormalities. Mild paranasal sinus disease as described. 01/25/2025 ESR and CRP both within normal limits [facility] Medical History (Updated 03/25/25 @ 15:01 by Lyla Tse CNP) Pruritus ani GERD (gastroesophageal reflux disease) Migraine Surgical History H/O: hemorrhoidectomy (~2018) History of cholecystectomy (~2009) History of tonsillectomy (~2008) History of (~2009) Review of Systems Const All systems reviewed & are unremarkable except as noted in HPI and below Physical Exam Vital Signs: Last Vital Signs Pulse 71 03/25/25 14:36 Resp 16 03/25/25 14:36 BP 108/75 03/25/25 14:36 Pulse Ox 99 03/25/25 14:36 Oxygen Delivery Method Room Air 03/25/25 14:36 BMI result Body Mass Index 35.9 Const General: cooperative, healthy appearing, comfortable and no acute distress Nutritional Appearance: well nourished Orientation/consciousness: patient oriented x3 Limitations: no limitations HEENT Other: Right temporal and occipital pain with palpation Head: Yes normal to inspection and Yes normocephalic Eyes Visual Roman: normal visual roman by confrontation Alignment and Position: alignment normal Periorbital: periorbital findings normal Eyelids: Yes eyelids normal Sclerae: sclerae normal Neck Neck: Yes normal visual inspection and Yes full ROM General: Yes no CVA tenderness Back/Spine/Pelvis Back: no CVA tenderness Cervical Spine: normal cervical lordosis Thoracic/Lumbar Spine: thoracic and lumbar spine normal to inspection Neuro General: patient oriented x3 Cranial nerves: Yes CN's II-XII intact bilaterally and Yes Facial sensation intact/muscles of mastication intact Cognition (Neuro): normal cognition Gait exam (Neuro): Normal gait present Motor exam (neuro): no tremor noted Sensory Exam: double simultaneous stimulation for sensation normal Romberg Test: Negative Pupils: Normal pupillary reactivity/response: bilateral Psych Appearance: grossly normal Mental Status: mental status grossly normal Speech and movement: Normal speech and movement present and Clear speech present Affect: normal affect Attitude: cooperative Thought process: Normal thought process present Thought content: Normal thought content present Insight: Good insight present (Psych) Judgement: Good judgement present (Psych) Assessment & Plan Assessment & Plan (1) Vertigo: Code(s): R42 - Dizziness and giddiness Category: Medical (2) Migraine without aura and without status migrainosus, not intractable: Code(s): G43.009 - Migraine without aura, not intractable, without status migrainosus Category: Medical (3) Dizziness: Code(s): R42 - Dizziness and giddiness Category: Medical Plan Jennifer is a 39-year-old female patient following in the clinic for migraines her acute symptoms described at last visit have resolved and her workup was reassuring. Headache description at this time is consistent with episodic migraine though control could be optimized. Given her description of dizziness in between episodes and wondering if there was also a vestibular component. I will 1st optimize her verapamil going from 40 mg immediate release nightly to 100 mg extended release nightly. We can increase as tolerated bubble pressure is soft and therefore we will start of the lower extended-release dose. She also reports some gasping arousals and poor sleep quality. It is worthwhile to check a home sleep study to see if there was any evidence of sleep apnea which can play a role in exacerbation of headache. -increase verapamil from 40 mg immediate release to 100 mg extended release nightly -home sleep study -follow up in 2 months or sooner if needed Orders: Orders RT home sleep study Today R06.89 - Other abnormalities of breathing, Z72.820 - Sleep deprivation Medications: New verapamil ER 100 mg PO BEDTIME 30 caps 5RF 30 days Discontinued verapamil Discontinued Reason: Doctor's Order 40 mg PO DAILY 90 days 90 tabs 1RF Coding Level of Care Code Est Pt Level 4 (70146) Diagnoses Vertigo R42 Migraine without aura and without status migrainosus, not intractable G43.009 Dizziness R42
[2025-03-25 14:36] VITALS: BP 108/75; PULSE 71; RESP 16; O2SAT 99; BMI 35.9
--- OUTSIDE RECORDS SUMMARY | 2025-03-25 21:21 | XMS_ITS | Clinical Summary ---
Author Organization [facility] Address [address] [place] [address] Care Team Providers Care Flight Attendant Inflight Services Name Role Phone DamianMillicent GAYLE Primary Care Provider [phone] Source Comments PLEASE NOTE, if this patient [...] (post-traumatic stress disorder) 12/28/2018 Moderate episode of recurrent major depressive d isorder 12/28/2018 Calculus of gallbladder with out cholecystitis [...] cholecystitis. Dizziness 11/16/2017 Overview (11/16/2017): 08/14/17 - [facility]: pt was not able to [...] - Eval by gen Surg Shi Carrasco NP. Pt with problematic prolapsing internal hemorrhoids. 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
--- OUTSIDE RECORDS SUMMARY | 2025-03-25 21:21 | XMS_ITS | Clinical Summary ---
Author Organization [facility] Address [address] [place] [address] Phone Care Team Providers Care Transitional Care Manager Name Role Phone Onelia Daigle Primary Care Provider [phone] Allergies No known active allergies Medications diclofenac (Voltaren Arthritis Pain) 1 % topical gel Apply 4 g topically 2 (two) times a day. 240 g 1 03/14/20 25 Encounters Date Type Department Care Team Description 03/22/2025 3:30 PM EST Treatment [address] [phone] Arya Florez, SODA DRY HOUSE OPERATOR Tendonitis of ankle or foot (Primary Dx) 03/17/2025 4:00 PM EST Treatment [address] [phone] Arya Florez, SODA DRY HOUSE OPERATOR Tendonitis of ankle or foot (Primary Dx) 02/15/2025 11:00 AM EDT Evaluation [address] [phone] Fina Cota, JONATHAN Tendonitis of ankle or foot (Primary Dx) 02/15/2025 Plan of Care Documentation [address] [phone] 01/17/2025 11:30 AM EDT Treatment [address] [phone] Mallorie Cruz, PT Chronic right shoulder pain (Primary Dx) 01/13/2025 11:15 AM EDT Treatment [facility] [address] [address] Mallorie Cruz, PT Chronic right shoulder pain (Primary Dx) 01/13/2025 10:45 AM EDT Consult Orthopedic Surgery [facility] [address] [facility] [address] [place] [address] Sean Serna, DPM Tendinitis of right ankle (Primary Dx); Tendinitis of left ankle; Neuritis of foot, unspecified laterality; Metatarsalgia of both feet 01/11/2025 11:00 AM EDT Treatment [facility] [address] [address] Mallorie Cruz, PT Chronic right shoulder pain (Primary Dx) 01/04/2025 11:00 AM EDT Treatment [facility] [address] [address] Mallorie Cruz, PT Chronic right shoulder pain (Primary Dx) 12/29/2024 11:30 AM EDT Treatment [facility] [address] [address] Mallorie Cruz, PT Chronic right shoulder pain (Primary Dx) 12/27/2024 11:00 AM EDT Treatment [address] [address] Odalis Molina, PT Chronic right shoulder pain (Primary Dx) from Last 3 Months Surgical History Surgery Date Site/Laterality Comments SECTION PROCEDURE: DC DELIVERY ONLY TONSILLECTOMY PROCEDURE: HISTORICAL TONSILLECTOMY Medical History Medical History Date Comments Iron deficiency DX:Iron deficien cy GERD (gastroesophageal reflux disease) DX:GERD (gastroesophageal reflux disease) Pelvic congestion syndrome DX:Pe lvic congestion syndrome; COMMENT: noted on sono in 2014 and 2018 Family History Medical History Relation Name Comments [...] Info) Description 03/29/2025 3:30 PM EST Treatment [facility] [address] [phone] Ayra Florez PTA 04/01/2025 3:00 PM EST Treatment [facility] [address] [address] Mallorie Cruz, JONATHAN Health Maintenance Due Date Last Done Comments Breast Cancer Screening 1985 Cervical Cancer Screening: Pap Smear 2005 HPV Vaccines (1 - 3-dose SCDM series) 2011 Hepatitis B Vaccines (3 of 3 - 19+ 3-dose series) 11/30/2013 09/13/2013, 08/13/2013, 06/02/2013 HIV Screening 04/08/2022 Hepatitis C Screening 04/08/2022 Medicare Annual Wellness Visit 04/08/2022 Social Influencers of Health Screening 04/08/2022 Cholesterol Screening (Lipid Panel) 06/20/2022 06/20/2017 DTaP,Tdap,and Td Vaccines (3 - Td or Tdap) 08/14/2023 08/13/2013, 04/28/2013 Depression Screening 05/12/2024 COVID-19 Vaccine (3 - 2025-26 season) 2025 11/08/2020, 10/18/2020 Influenza Vaccine (#1) 2025 9, 02/16/2018, 03/15/2014, Additional history exists RSV Immunization Adult Patients (1 - 1-dose 75+ series) 2059 MMR Vaccines Aged Out 06/02/2013, 04/28/2013 No [...] Author STGs (x4 visits) General Yes Tish Aiken, PT Note: Patient will increase R knee flexion ROM to >/= 125 degrees for symmetry and ambulation Patient will increase knee flexion and extension strength to >/= 4/5 for functional mobility Patient will decrease time on 5xSTS to </= 25 seconds for improvement in functional strength Patient will be independent with HEP LTGs (x8 visits) General Yes Tish Aiken, PT Note: Patient will improve R hip [...] Patient is independent and compliant with HEP Insurance MEDICARE MEDICAID - [place] Care Teams Transitional Care Manager Relationship Specialty Start Date End Date Onelia Daigle PA [address] [place] [id number] PCP - General Physician Patent Examiner 10/05/24
--- OUTSIDE RECORDS SUMMARY | 2025-03-25 21:21 | XMS_ITS | Patient Health Record ---
Author Organization [facility] Address [address] [place] [address] Care Team Providers Care Medical Sales Specialist Name Role Phone YASMEEN ORTIZ Primary Care [...] day; Duration: 30 Active Ergocalciferol 1.25 MG (24818 UT) 1 capsule Orally weekly; Duration: 30 [...] W/U Status Risk Notes Problem Viral infection (28107545) Viral infection, unspecified (B34.9) Active confirmed Problem Pernicious anemia (25054441) Vitamin B12 deficiency anemia due to intrinsic factor deficiency (D51.0) Active confirmed Problem Vitamin D deficiency (15230715) Vitamin D deficiency, unspecified (E55.9) Active confirmed Problem Mild recurrent major depression (61609014) Major depressive disorder, recurrent, mild (F33.0) Active confirmed Problem Generalized anxiety disorder (71573091) Generalized anxiety disorder (F41.1) Active confirmed Problem Migraine with aura (4385111) Migraine with aura, not intractable, without status migrainosus (G43.109) Active confirmed Problem Insomnia (837440719) Insomnia, unspecified (G47.00) Active confirmed Problem Acute sinusitis (32729480) Acute sinusitis, unspecified (J01.90) Active confirmed Problem Constipation (35730614) Constipation, unspecified (K59.00) Active confirmed Problem Second degree hemorrhoids (487163016) Second degree hemorrhoids (K64.1) Active confirmed Problem Osteoarthritis of knee (196776421) Bilateral primary osteoarthritis of knee (M17.0) Active confirmed Problem Joint pain (86988873) Pain in unspecified joint (M25.50) Active confirmed Problem Low back pain (878030109) Low back pain (M54.5) Active confirmed Problem Epigastric pain (63883798) Epigastric pain (R10.13) Active confirmed Problem Headache (42933328) Headache (R51) Active confirmed Problem Fatigue (53406330) Other fatigue (R53.83) Active confirmed Problem Syncope and collapse (151100193) Syncope and collapse (R55) Active confirmed Problem Pre-procedure evaluation check (451332950) Encounter for other preprocedural examination (Z01.818) Active confirmed Problem Body mass index 30.00 to 34.99 (241195633378475) Body mass index (BMI) 31.0-31.9, adult (Z68.31) Active confirmed Problem Body mass index 30.00 to 34.99 (512868959580584) Body mass index (BMI) 32.0-32.9, adult (Z68.32) Active confirmed Problem Abdominal pain (42737290) Abdominal pain (R10.9) Active confirmed Problem Hemorrhoids without complication (55838749) Hemorrhoids, unspecified hemorrhoid type (K64.9) Active confirmed Plan Of Treatment Pending Test Test Name Order Date US ABDOMINAL 02/09/2019 C. DIFFICILE TOXIN PCR 12/01/2019 Insurance Providers Payer Name Payer Address Payer Phone Subscriber Number Group Number Insured Name Patient Relationship to Insured Coverage Start Date Coverage End Date Medicare [address] [place] [phone] [id number] Jennifer Ryan i Self - patient is the insured [place] [address] [place] [address] [id number] Jennifer Ryan i Self - patient is [...]
== END 2025-03-25 15:03 | disposition home or self-care (01) ==
LOC: HO.HSM 14:23
PROVIDERS: PCP Physician Assistant Medical; Visit Provider Nurse Practitioner
DX: R42 Dizziness and giddiness (principal); G43.009 Migraine without aura, not intractable, without status migrainosus
CPT/HCPCS: 99214

== ENCOUNTER → 2025-03-25 14:23 | Outpatient (BNVA) | payer MEDICARE, MEDICAID, SELFPAY | PROVIDERS: PCP Physician Assistant Medical; Visit Provider Nurse Practitioner | DX: R42 Dizziness and giddiness (principal); G43.009 Migraine without aura, not intractable, without status migrainosus | CPT/HCPCS: 99212 ==